=== PATIENT | female | born 1980 | race Caucasian/White ===

== ENCOUNTER → 2025-03-15 | Outpatient (CLI) | payer OTHER, SELFPAY ==
[2025-03-15 22:55] LABS: Hematocrit 38.2 % (37-47); Hemoglobin 12.4 g/dL (12.0-15.0); Immature Granulocytes Count 0.020 X10^3/uL (0.0-0.0); Mean Corp Hgb Conc 32.5 g/dL (32-36); Mean Corpuscular Volume 78.8 fL (81-99); Mean Platelet Vol. 10.9 fl (6.2-12.0); NRBC Flagged by Analyzer 0 % (0-5); Platelet Count 309 K/mm3 (150-450); RBC Distribution Width CV 15.2 % (11.6-14.6); RBC Distribution Width SD 42.6 fl (35.1-43.9); Red Blood Count 4.85 M/mm3 (4.2-5.4); White Blood Count 7.7 K/mm3 (4.4-11.0)
[2025-03-16 00:16] LABS: FOLATES,SERUM (FOLIC ACID) > 40.00 ng/mL (4.60-34.80)
[2025-03-16 04:41] LABS: BUN 19 mg/dL (4-19); BUN/Creat Ratio 24.1 RATIO (10-20); Glucose 87 mg/dL (70-99)
[2025-03-16 04:42] LABS: AST(SGOT) 24 U/L (<=31); Alanine Aminotransfer ALT/SGPT 39 U/L (<=34); Albumin, Serum 4.0 g/dL (3.5-5.0); Alkaline Phosphatase 126 U/L (35-104); Anion Gap 12 (5-15); CRP 7.28 mg/L (0.0-3.0); Calcium,Total 8.9 mg/dL (7.6-11.0); Carbon Dioxide 22.5 mmol/L (21.0-32.0); Chloride 103 mmol/L (98-108); Globulin 3.3 g/dL (2.2-4.2); Potassium 4.3 mmol/L (3.3-5.1)
[2025-03-16 04:43] LABS: Ferritin 58 ng/mL (22-378); Iron 28 ug/dL (50-170); Vitamin B12 920 pg/mL (180-914); Vitamin D,25 Hydroxy 33.2 ng/mL (30-100)
[2025-03-18 08:07] LABS: PROGESTERONE 0.1 ng/mL (.)
== END | disposition home or self-care (01) ==
PROVIDERS: PCP Family Medicine; Referring Provider Nurse Practitioner Family; Visit Provider Nurse Practitioner Family
DX: A69.20 Lyme disease, unspecified (principal); R21 Rash and other nonspecific skin eruption; R53.83 Other fatigue; R51.9 Headache, unspecified; R06.00 Dyspnea, unspecified
CPT/HCPCS: 80053; 82306; 82607; 82627; 82670; 82728; 82746; 83540; 84144; 84403; 85025; 86140; 82626

== ENCOUNTER → 2025-04-27 | Outpatient (CLI) | payer OTHER, SELFPAY ==
--- OUTSIDE RECORDS SUMMARY | 2025-04-27 17:08 | XMS RPT_ITS | CCD ---
Author Organization [facility] Care Team Providers Care Supervisor [employer] Department Name Role Phone ELENA TOMAS DO Consulting Unavailable GRISELDA WEI CNM Admitting Unavailable GRISELDA WEI CNM Primary Care Unavailable GRISELDA WEI CNM Attending Unavailable PROVIDER, UNKNOWN Consulting Unavailable YOSSI CRAIN CNM Admitting Unavailable YOSSI CRAIN CNM Primary Care Unavailable YOSSI CRAIN CNM Attending Unavailable ELENA TOMAS DO Consulting Unavailable PROVIDER, UNKNOWN Consulting Unavailable Unavailable Primary Care Provider Dr. Elena Geller DO Primary Care Provider Payton LUQUE-C, Mckenzie Gold Attending Provider Unava ilable Payton LUQUE-C, Mckenzie Gold Referring Provider Unava ilable Payton DIVERSIFIED CROPS FARMER, Mckenzie Gold Attending Elena Geller Primary Care Unavailable Payton LUQUE, Mckenzie Gold Referring Luis Cain NP, Mckenzie Gold Attending Elena Geller Primary Care Unavailable Medications Current Medications Medication Drug Class(es) Dates Sig (Normalized) Sig (Original) L.Acidoph,Paracasei ,B.Animalis 1 EACH capsule (1 source) Start: 03-29-2015 take 1 capsule by mouth once daily L.Acidoph,Paracase i,B.Animalis 1 EACH capsule Active 1 NMA PO DAILY March 29, 2015 12:00am Magnesium (1 source) Start: 03-29-2015 Magnesium capsule Active 2 PO TWICE A DAY March 29, 2015 12:00am Vit No.452-Hlob-Ixyac ( Vitamin Tablet) 1 EACH tablet (1 source) Start: 03-29-2015 Vit No.419-Ipdk-Mwboz ( Vitamin Tablet) 1 EACH tablet Active 1 NMA PO DAILY March 29, 2015 12:00am Vitamin C tablet (1 source) Start: 03-29-2015 Vitamin C tablet Active 500 {tbl} PO DAILY March 29, 2015 12:00am Problems Problem Classification Problem Date Documented Da te Episodic/Chronic Other infections; including parasitic (1 source) Lyme disease, unspecified; Translations: [Lyme disease, unspecified] Onset: 03-22-2025 Episodic Results Test Name Value Interpretation Reference Range Facility DHEA Sulfateon 03-18-2025 DHEA SULFATE 41.9 ug/dL Low 57.3-279.2 [facility] Comment on above: Order Comment: N Result Comment: Perf ormed at: [address] [id number] Oceanology Teacher: Braden Chapa PhD, Phone: [phone] Performed By: #### L 500.4050, L506.0200, L506.1001, L503.6550, L100.0100, L501.6710, L503.6150, L3300.1750, L503.0106 #### [facility] [address] [place], [address] PROGESTERONE 4317on 03-18-20 PROGESTERONE 0.1 ng/mL Normal . [facility] Comment on above: Order Comment: N Result Comment: Foll icular phase 0.1 - 0.9 Luteal phase 1.8 - 23.9 Ovulation phase 0.1 - 12.0 First trimester 11.0 - 44.3 Second trimester 25.4 - 83.3 Third trimester 58.7 - 214.0 Postmenopausal 0.0 - 0.1 Performed at: [address] [id number] Oceanology Teacher: Braden Chapa PhD, Phone: [phone] Performed By: #### L 500.4050, L506.0200, L506.1001, L503.6550, L100.0100, L501.6710, L503.6150, L3300.1750, L503.0106 #### [facility] [address] [place], [address] CRPon 03-16-2025 C-REACTIVE PROT 7.28 mg/L High 0.0-3.0 [facility] Comment on above: Performed By: #### L 500.4050, L506.0200, L506.1001, L503.6550, L100.0100, L501.6710, L503.6150, L3300.1750, L503.0106 #### [facility] [address] [place], [address] C-REACTIVE PROT 7.28 mg/L High 0.0-3.0 [facility] Comment on above: Order Comment: WRONG ACCOUNT MADE- SEE ACCOUNT [id number] Result Comment: VISHAL G ACCOUNT MADE- SEE ACCOUNT [id number] Performed By: #### L 500.4050, L506.0200, L506.1001, L503.6550, L100.0100, L501.6710, L503.6150, L3300.1750, L503.0106 #### [facility] [address] [place], [address] Comprehensive Metabolic Prof [facility] 03-16-2025 Albumin [Mass/Vol] 4.0 g/dL Normal 3.5-5.0 [facility] Comment on above: Performed By: #### L 500.4050, L506.0200, L506.1001, L503.6550, L100.0100, L501.6710, L503.6150, L3300.1750, L503.0106 #### [facility] [address] [place], [address] Albumin/Globulin [Mass ratio] 1.2 {ratio} Normal 0.9-2.4 [facility] Comment on above: Performed By: #### L 500.4050, L506.0200, L506.1001, L503.6550, L100.0100, L501.6710, L503.6150, L3300.1750, L503.0106 #### [facility] [address] [place], [address] ALK PHOS 126 U/L High 35-104 [facility] Comment on above: Performed By: #### L 500.4050, L506.0200, L506.1001, L503.6550, L100.0100, L501.6710, L503.6150, L3300.1750, L503.0106 #### [facility] [address] [place], [address] ALT [Catalytic activity/Vol] 39 U/L High <=34 [facility] Comment on above: Performed By: #### L 500.4050, L506.0200, L506.1001, L503.6550, L100.0100, L501.6710, L503.6150, L3300.1750, L503.0106 #### [facility] [address] [place], [address] AST [Catalytic activity/Vol] 24 U/L Normal <=31 [facility] Comment on above: Performed By: #### L 500.4050, L506.0200, L506.1001, L503.6550, L100.0100, L501.6710, L503.6150, L3300.1750, L503.0106 #### [facility] [address] [place], [address] Bilirubin [Mass/Vol] 0.18 mg/dL Normal 0.00-1.30 [facility] Comment on above: Performed By: #### L 500.4050, L506.0200, L506.1001, L503.6550, L100.0100, L501.6710, L503.6150, L3300.1750, L503.0106 #### [facility] [address] [place], [address] Calcium [Mass/Vol] 8.9 mg/dL Normal 7.6-11.0 [facility] Comment on above: Performed By: #### L 500.4050, L506.0200, L506.1001, L503.6550, L100.0100, L501.6710, L503.6150, L3300.1750, L503.0106 #### [facility] [address] [place], [address] Chloride [Moles/Vol] 103 mmol/L Normal 98-108 [facility] Comment on above: Performed By: #### L 500.4050, L506.0200, L506.1001, L503.6550, L100.0100, L501.6710, L503.6150, L3300.1750, L503.0106 #### [facility] [address] [place], [place], [id number] (835) CO2 [Moles/Vol] 22.5 mmol/L Normal 21.0-32.0 [facility] Comment on above: Performed By: #### L 500.4050, L506.0200, L506.1001, L503.6550, L100.0100, L501.6710, L503.6150, L3300.1750, L503.0106 #### [facility] [address] [place], [address] GAP 12 Normal 5-15 [facility] Comment on above: Performed By: #### L 500.4050, L506.0200, L506.1001, L503.6550, L100.0100, L501.6710, L503.6150, L3300.1750, L503.0106 #### [facility] [address] [place], [place], [id number] ([address]) GFR/1.73 sq M.predicted among non-blacks MDRD (S/P/Bld) [Vol rate/Area] 94 mL/min/{1.73_m2} Normal >60 [facility] Comment on above: Performed By: #### L 500.4050, L506.0200, L506.1001, L503.6550, L100.0100, L501.6710, L503.6150, L3300.1750, L503.0106 #### [facility] [address] [place], [address] Globulin (S) [Mass/Vol] 3.3 g/dL Normal 2.2-4.2 [facility] Comment on above: Performed By: #### L 500.4050, L506.0200, L506.1001, L503.6550, L100.0100, L501.6710, L503.6150, L3300.1750, L503.0106 #### [facility] [address] [place], [address] Potassium [Moles/Vol] 4.3 mmol/L Normal 3.3-5.1 [facility] Comment on above: Performed By: #### L 500.4050, L506.0200, L506.1001, L503.6550, L100.0100, L501.6710, L503.6150, L3300.1750, L503.0106 #### [facility] [address] [place], [address] Sodium [Moles/Vol] 137 mmol/L Normal 133-145 [facility] Comment on above: Performed By: #### L 500.4050, L506.0200, L506.1001, L503.6550, L100.0100, L501.6710, L503.6150, L3300.1750, L503.0106 #### [facility] [address] [place], [address] T PROT 7.3 g/dL Normal 5.9-8.4 [facility] Comment on above: Performed By: #### L 500.4050, L506.0200, L506.1001, L503.6550, L100.0100, L501.6710, L503.6150, L3300.1750, L503.0106 #### [facility] [address] [place], [address] BUN/CRE 24.1 RATIO High 10-20 [facility] Comment on above: Performed By: #### L 500.4050, L506.0200, L506.1001, L503.6550, L100.0100, L501.6710, L503.6150, L3300.1750, L503.0106 #### [facility] [address] [place], [address] Creatinine [Mass/Vol] 0.79 mg/dL Normal 0.70-1.20 [facility] Comment on above: Performed By: #### L 500.4050, L506.0200, L506.1001, L503.6550, L100.0100, L501.6710, L503.6150, L3300.1750, L503.0106 #### [facility] [address] [place], [address] Glucose [Mass/Vol] 87 mg/dL Normal 70-99 [facility] Comment on above: Performed By: #### L 500.4050, L506.0200, L506.1001, L503.6550, L100.0100, L501.6710, L503.6150, L3300.1750, L503.0106 #### [facility] [address] [place], [address] Urea nitrogen [Mass/Vol] 19 mg/dL Normal 4-19 [facility] Comment on above: Performed By: #### L 500.4050, L506.0200, L506.1001, L503.6550, L100.0100, L501.6710, L503.6150, L3300.1750, L503.0106 #### [facility] [address] [place], [address] Estradiolon 03-16-2025 ESTRADIOL 17.8 pg/mL Normal [facility] Comment on above: Result Comment: FEMA LES ADULT FEMALE: Premenopausal: 15-350 pg/mL(E2 levels vary widely through the menstrual cycle) Postmenopausal: <10 pg/mL MIGUEL STAGES MEAN AGE REFERENCE RANGES Stage I(>14 days and prepubertal) 7.1 years Undetectable-20 pg/mLL Stage II 10.5 years Undetectable-24 pg/mL Stage III 11.6 years Undetectable-60 pg/mL Stage IV 12.3 years 15-85 pg/mL Stage V 14.5 years 15-350 pg/mL Puberty onset (transition from Miguel stage I to Miguel stage II) occurs for girls at a median age of 10.5 (/- 2) years. There is evidence that it may occur up to 1 year earlier in obese girls and in girls. Progression through Miguel stages is variable. Miguel stage V (adult) should be reached by age 18. Performed By: #### L 500.4050, L506.0200, L506.1001, L503.6550, L100.0100, L501.6710, L503.6150, L3300.1750, L503.0106 #### [facility] [address] [place], [address] Ferritinon 03-16-2025 Ferritin [Mass/Vol] 58 ng/mL Normal 22-378 [facility] Comment on above: Performed By: #### L 500.4050, L506.0200, L506.1001, L503.6550, L100.0100, L501.6710, L503.6150, L3300.1750, L503.0106 #### [facility] [address] [place], [place], [address] Folates,Serum (Folic Acid)on 03-16-2025 FOLATES,SERUM > 40.00 High 4.60-34.80 [facility] Comment on above: Order Comment: WRONG ACCOUNT MADE- SEE ACCOUNT [id number] N Result Comment: VISHAL Cali ACCOUNT MADE- SEE ACCOUNT [id number] Performed By: #### L 500.4050, L506.0200, L506.1001, L503.6550, L100.0100, L501.6710, L503.6150, L3300.1750, L503.0106 #### [facility] [address] [place], [address] FOLATES,SERUM > 40.00 High 4.60-34.80 [facility] Comment on above: Order Comment: N Performed By: #### L 500.4050, L506.0200, L506.1001, L503.6550, L100.0100, L501.6710, L503.6150, L3300.1750, L503.0106 #### [facility] [address] [place], [address] Ironon 03-16-2025 Iron [Mass/Vol] 28 ug/dL Low 50-170 [facility] Comment on above: Performed By: #### L 500.4050, L506.0200, L506.1001, L503.6550, L100.0100, L501.6710, L503.6150, L3300.1750, L503.0106 #### [facility] [address] [place], [address] Iron [Mass/Vol] 28 ug/dL Low 50-170 [facility] Comment on above: Order Comment: WRONG ACCOUNT MADE- SEE ACCOUNT [id number] Result Comment: VISHAL Cali ACCOUNT MADE- SEE ACCOUNT [id number] Performed By: #### L 500.4050, L506.0200, L506.1001, L503.6550, L100.0100, L501.6710, L503.6150, L3300.1750, L503.0106 #### [facility] [address] [place], [address] L509.3001on 03-16-2025 Testosterone [Mass/Vol] ng/dL Low 9-55 [facility] Comment on above: Performed By: #### L 509.3001 #### [facility] [address] [place], [address] Laboratory - Chemistry and C hemistry - challengeOrdered By: Mckenzie Cain on 03-16-2025 Testosterone [Mass/Vol] ng/dL Low 9-55 [facility] Vitamin B12on 03-16-2025 Cobalamin (Vitamin B12) [Mass/Vol] 920 pg/mL High 180-914 [facility] Comment on above: Performed By: #### L 500.4050, L506.0200, L506.1001, L503.6550, L100.0100, L501.6710, L503.6150, L3300.1750, L503.0106 #### [facility] [address] [place], [address] Vitamin D,25 Hydroxyon 03-16 Vitamin D 25-OH 33.2 ng/mL Normal 30-100 [facility] Comment on above: Performed By: #### L 500.4050, L506.0200, L506.1001, L503.6550, L100.0100, L501.6710, L503.6150, L3300.1750, L503.0106 #### [facility] [address] [place], [address] Absolute lymphocyte countOrd ered By: Mckenzie Cain on 03-15-2025 Lymphocytes Auto (Unsp spec) [#/Vol] 1.37 10*3/uL 0.83-4.51 [facility] Absolute neutrophil countOrd ered By: Mckenzie Cain on 03-15-2025 Neutrophils (Bld) [#/Vol] 5.1 10*3/uL 2.0-7.7 [facility] Anion gap in Serum or Plasma Ordered By: Mckenzie Cain on 03-15-2025 Anion gap [Moles/Vol] 12 mmol/L 5-15 [facility] Automated lymphocyte count a s percentage of total leukocytesOrdered By: Mckenzie Cain on 03-15-2025 Lymphocytes/100 WBC Auto (Unsp spec) 17.7 % Low 19-41 [facility] BUN/creatinine ratioOrdered By: Mckenzie Cain on 03-15-2025 Urea nitrogen/Creatinine [Mass ratio] 24.1 mg/mg High 10-20 [facility] Basophil percentageOrdered B y: Mckenzie Cain on 03-15-2025 Basophils/100 WBC (Bld) 0.8 % 0-1 [facility] Bilirubin, totalOrdered By: Mckenzie Cain on 03-15-2025 Bilirubin [Mass/Vol] 0.18 mg/dL 0.00-1.30 [facility] CBC W/Diff, Automatedon 07-0 -2024 Absolute Lymph 1.37 X10 3/uL Normal 0.83-4.51 [facility] Comment on above: Performed By: #### L 500.4050, L506.0200, L506.1001, L503.6550, L100.0100, L501.6710, L503.6150, L3300.1750, L503.0106 #### [facility] [address] [place], [address] Absolute Neut 5.1 X10 3/uL Normal 2.0-7.7 [facility] Comment on above: Performed By: #### L 500.4050, L506.0200, L506.1001, L503.6550, L100.0100, L501.6710, L503.6150, L3300.1750, L503.0106 #### [facility] [address] [place], [address] Basophils/100 WBC (Bld) 0.8 % Normal 0-1 [facility] Comment on above: Performed By: #### L 500.4050, L506.0200, L506.1001, L503.6550, L100.0100, L501.6710, L503.6150, L3300.1750, L503.0106 #### [facility] [address] [place], [address] Eosinophils/100 WBC (Bld) 8.0 % High 0-5 [facility] Comment on above: Performed By: #### L 500.4050, L506.0200, L506.1001, L503.6550, L100.0100, L501.6710, L503.6150, L3300.1750, L503.0106 #### [facility] [address] [place], [address] Erythrocyte distribution width (RBC) [Ratio] 15.2 % High 11.6-14.6 [facility] Comment on above: Performed By: #### L 500.4050, L506.0200, L506.1001, L503.6550, L100.0100, L501.6710, L503.6150, L3300.1750, L503.0106 #### [facility] [address] [place], [place], [id number] (824) Hematocrit (Bld) [Volume fraction] 38.2 % Normal 37-47 [facility] Comment on above: Performed By: #### L 500.4050, L506.0200, L506.1001, L503.6550, L100.0100, L501.6710, L503.6150, L3300.1750, L503.0106 #### [facility] [address] [place], [address] Hemoglobin (Bld) [Mass/Vol] 12.4 g/dL Normal 12.0-15.0 [facility] Comment on above: Performed By: #### L 500.4050, L506.0200, L506.1001, L503.6550, L100.0100, L501.6710, L503.6150, L3300.1750, L503.0106 #### [facility] [address] [place], [address] IG% 0.300 Normal 0.0-0.9 [facility] Comment on above: Result Comment: IG% - Immature Granulocytes (promyelocytes, myelocytes and metamyelocytes) > 1% indicates that a LEFT SHIFT is Present. Performed By: #### L 500.4050, L506.0200, L506.1001, L503.6550, L100.0100, L501.6710, L503.6150, L3300.1750, L503.0106 #### [facility] [address] [place], [address] Lymphocytes/100 WBC (Bld) 17.7 % Low 19-41 [facility] Comment on above: Performed By: #### L 500.4050, L506.0200, L506.1001, L503.6550, L100.0100, L501.6710, L503.6150, L3300.1750, L503.0106 #### [facility] [address] [place], [address] MCH (RBC) [Entitic mass] 25.6 pg Low 27.0-32.0 [facility] Comment on above: Performed By: #### L 500.4050, L506.0200, L506.1001, L503.6550, L100.0100, L501.6710, L503.6150, L3300.1750, L503.0106 #### [facility] [address] [place], [address] MCHC (RBC) [Mass/Vol] 32.5 g/dL Normal 32-36 [facility] Comment on above: Performed By: #### L 500.4050, L506.0200, L506.1001, L503.6550, L100.0100, L501.6710, L503.6150, L3300.1750, L503.0106 #### [facility] [address] [place], [address] MCV (RBC) [Entitic vol] 78.8 fL Low 81-99 [facility] Comment on above: Performed By: #### L 500.4050, L506.0200, L506.1001, L503.6550, L100.0100, L501.6710, L503.6150, L3300.1750, L503.0106 #### [facility] [address] [place], [address] Monocytes/100 WBC (Bld) 7.1 % Normal 0-10 [facility] Comment on above: Performed By: #### L 500.4050, L506.0200, L506.1001, L503.6550, L100.0100, L501.6710, L503.6150, L3300.1750, L503.0106 #### [facility] [address], [address] Neutrophils/100 WBC (Bld) 66.1 % Normal 47-70 [facility] Comment on above: Performed By: #### L 500.4050, L506.0200, L506.1001, L503.6550, L100.0100, L501.6710, L503.6150, L3300.1750, L503.0106 #### [facility] [address], [address] Nucleated RBC (Bld) [#/Vol] 0 10*3/uL Normal 0-5 [facility] Comment on above: Performed By: #### L 500.4050, L506.0200, L506.1001, L503.6550, L100.0100, L501.6710, L503.6150, L3300.1750, L503.0106 #### [facility] [address] [place], [address] Platelet mean volume (Bld) [Entitic vol] 10.9 fL Normal 6.2-12.0 [facility] Comment on above: Performed By: #### L 500.4050, L506.0200, L506.1001, L503.6550, L100.0100, L501.6710, L503.6150, L3300.1750, L503.0106 #### [facility] [address] [place], [address] Platelets (Bld) [#/Vol] 309 10*3/uL Normal 150-450 [facility] Comment on above: Performed By: #### L 500.4050, L506.0200, L506.1001, L503.6550, L100.0100, L501.6710, L503.6150, L3300.1750, L503.0106 #### [facility] [address] [place], [address] RBC (Bld) [#/Vol] 4.85 10*6/uL Normal 4.2-5.4 [facility] Comment on above: Performed By: #### L 500.4050, L506.0200, L506.1001, L503.6550, L100.0100, L501.6710, L503.6150, L3300.1750, L503.0106 #### [facility] [address] [place], [address] RDW SD 42.6 fl Normal 35.1-43.9 [facility] Comment on above: Performed By: #### L 500.4050, L506.0200, L506.1001, L503.6550, L100.0100, L501.6710, L503.6150, L3300.1750, L503.0106 #### [facility] [address] [place], [address] WBC (Bld) [#/Vol] 7.7 10*3/uL Normal 4.4-11.0 [facility] Comment on above: Performed By: #### L 500.4050, L506.0200, L506.1001, L503.6550, L100.0100, L501.6710, L503.6150, L3300.1750, L503.0106 #### [facility] [address] [place], [address] Absolute Lymph 1.43 X10 3/uL Normal 0.83-4.51 [facility] Comment on above: Result Comment: VISHAL Cali ACCOUNT MADE- SEE ACCOUNT [id number] Performed By: #### L 500.4050, L506.0200, L506.1001, L503.6550, L100.0100, L501.6710, L503.6150, L3300.1750, L503.0106 #### [facility] [address] [place], [address] Absolute Neut 5.3 X10 3/uL Normal 2.0-7.7 [facility] Comment on above: Result Comment: VISHAL Cali ACCOUNT MADE- SEE ACCOUNT [id number] Performed By: #### L 500.4050, L506.0200, L506.1001, L503.6550, L100.0100, L501.6710, L503.6150, L3300.1750, L503.0106 #### [facility] [address] [place], [address] BASO# 0.06 X10 3/uL Normal [facility] Comment on above: Result Comment: VISHAL Cali ACCOUNT MADE- SEE ACCOUNT [id number] Performed By: #### L 500.4050, L506.0200, L506.1001, L503.6550, L100.0100, L501.6710, L503.6150, L3300.1750, L503.0106 #### [facility] [address] [place], [address] Basophils/100 WBC (Bld) 0.8 % Normal 0-1 [facility] Comment on above: Result Comment: VISHAL Cali ACCOUNT MADE- SEE ACCOUNT [id number] Performed By: #### L 500.4050, L506.0200, L506.1001, L503.6550, L100.0100, L501.6710, L503.6150, L3300.1750, L503.0106 #### [facility] [address] [place], [address] EOS# 0.59 X10 3/uL Normal [facility] Comment on above: Result Comment: VISHAL Cali ACCOUNT MADE- SEE ACCOUNT [id number] Performed By: #### L 500.4050, L506.0200, L506.1001, L503.6550, L100.0100, L501.6710, L503.6150, L3300.1750, L503.0106 #### [facility] [address] [place], [address] Eosinophils/100 WBC (Bld) 7.4 % High 0-5 [facility] Comment on above: Result Comment: VISHAL Cali ACCOUNT MADE- SEE ACCOUNT [id number] Performed By: #### L 500.4050, L506.0200, L506.1001, L503.6550, L100.0100, L501.6710, L503.6150, L3300.1750, L503.0106 #### [facility] [address] [place], [address] Erythrocyte distribution width (RBC) [Ratio] 15.0 % High 11.6-14.6 [facility] Comment on above: Result Comment: VISHAL Cali ACCOUNT MADE- SEE ACCOUNT [id number] Performed By: #### L 500.4050, L506.0200, L506.1001, L503.6550, L100.0100, L501.6710, L503.6150, L3300.1750, L503.0106 #### [facility] [address] [place], [address] Hematocrit (Bld) [Volume fraction] 38.2 % Normal 37-47 [facility] Comment on above: Result Comment: VISHAL Cali ACCOUNT MADE- SEE ACCOUNT [id number] Performed By: #### L 500.4050, L506.0200, L506.1001, L503.6550, L100.0100, L501.6710, L503.6150, L3300.1750, L503.0106 #### [facility] [address] [place], [place], [id number] ([phone]) Hemoglobin (Bld) [Mass/Vol] 12.3 g/dL Normal 12.0-15.0 [facility] Comment on above: Result Comment: VISHAL Viraj ACCOUNT MADE- SEE ACCOUNT [id number] Performed By: #### L 500.4050, L506.0200, L506.1001, L503.6550, L100.0100, L501.6710, L503.6150, L3300.1750, L503.0106 #### [facility] [address]. [place], [place], [id number] IG# 0.030 X10 3/uL High 0.0-0.0 [facility] Comment on above: Result Comment: VISHAL Cali ACCOUNT MADE- SEE ACCOUNT [id number] Performed By: #### L 500.4050, L506.0200, L506.1001, L503.6550, L100.0100, L501.6710, L503.6150, L3300.1750, L503.0106 #### [facility] [address] [facility] [place], [place], [id number] IG% 0.400 Normal 0.0-0.9 [facility] Comment on above: Result Comment: VISHAL [employer] ACCOUNT MADE- SEE ACCOUNT [id number] IG% - Immature Granulocytes (promyelocytes, myelocytes and metamyelocytes) > 1% indicates that a LEFT SHIFT is Present. Performed By: #### L 500.4050, L506.0200, L506.1001, L503.6550, L100.0100, L501.6710, L503.6150, L3300.1750, L503.0106 #### [facility] [address] [place], [place], [id number] ([phone]) LYMPH# 1.43 X10 3/ul Normal 0.83-4.51 [facility] Comment on above: Result Comment: VISHAL Cali ACCOUNT MADE- SEE ACCOUNT [id number] Performed By: #### L 500.4050, L506.0200, L506.1001, L503.6550, L100.0100, L501.6710, L503.6150, L3300.1750, L503.0106 #### [facility] [address] [place], [address] Lymphocytes/100 WBC (Bld) 18.0 % Low 19-41 [facility] Comment on above: Result Comment: VISHAL Cali ACCOUNT MADE- SEE ACCOUNT [id number] Performed By: #### L 500.4050, L506.0200, L506.1001, L503.6550, L100.0100, L501.6710, L503.6150, L3300.1750, L503.0106 #### [facility] [address] [place], [address] MCH (RBC) [Entitic mass] 25.5 pg Low 27.0-32.0 [facility] Comment on above: Result Comment: VISHAL Cali ACCOUNT MADE- SEE ACCOUNT [id number] Performed By: #### L 500.4050, L506.0200, L506.1001, L503.6550, L100.0100, L501.6710, L503.6150, L3300.1750, L503.0106 #### [facility] [address] [place], [address] MCHC (RBC) [Mass/Vol] 32.2 g/dL Normal 32-36 [facility] Comment on above: Result Comment: VISHAL Cali ACCOUNT MADE- SEE ACCOUNT [id number] Performed By: #### L 500.4050, L506.0200, L506.1001, L503.6550, L100.0100, L501.6710, L503.6150, L3300.1750, L503.0106 #### [facility] [address] [place], [address] MCV (RBC) [Entitic vol] 79.1 fL Low 81-99 [facility] Comment on above: Result Comment: VISHAL Cali ACCOUNT MADE- SEE ACCOUNT [id number] Performed By: #### L 500.4050, L506.0200, L506.1001, L503.6550, L100.0100, L501.6710, L503.6150, L3300.1750, L503.0106 #### [facility] [address] [place], [address] MONO # 0.53 X10 3/uL Normal [facility] Comment on above: Result Comment: VISHAL Cali ACCOUNT MADE- SEE ACCOUNT [id number] Performed By: #### L 500.4050, L506.0200, L506.1001, L503.6550, L100.0100, L501.6710, L503.6150, L3300.1750, L503.0106 #### [facility] [address] [place], [address] Monocytes/100 WBC (Bld) 6.7 % Normal 0-10 [facility] Comment on above: Result Comment: VISHAL Cali ACCOUNT MADE- SEE ACCOUNT [id number] Performed By: #### L 500.4050, L506.0200, L506.1001, L503.6550, L100.0100, L501.6710, L503.6150, L3300.1750, L503.0106 #### [facility] [address] [place], [address] Neutrophil # 5.29 X10 3/uL Normal 2.7-7.7 [facility] Comment on above: Result Comment: VISHAL Cali ACCOUNT MADE- SEE ACCOUNT [id number] Performed By: #### L 500.4050, L506.0200, L506.1001, L503.6550, L100.0100, L501.6710, L503.6150, L3300.1750, L503.0106 #### [facility] [address] [place], [address] Neutrophils/100 WBC (Bld) 66.7 % Normal 47-70 [facility] Comment on above: Result Comment: VISHAL Cali ACCOUNT MADE- SEE ACCOUNT [id number] Performed By: #### L 500.4050, L506.0200, L506.1001, L503.6550, L100.0100, L501.6710, L503.6150, L3300.1750, L503.0106 #### [facility] [address] [place], [address] Nucleated RBC (Bld) [#/Vol] 0 10*3/uL Normal 0-5 [facility] Comment on above: Result Comment: VISHAL Cali ACCOUNT MADE- SEE ACCOUNT [id number] Performed By: #### L 500.4050, L506.0200, L506.1001, L503.6550, L100.0100, L501.6710, L503.6150, L3300.1750, L503.0106 #### [facility] [address] [place], [address] Platelet mean volume (Bld) [Entitic vol] 10.4 fL Normal 6.2-12.0 [facility] Comment on above: Result Comment: VISHAL Cali ACCOUNT MADE- SEE ACCOUNT [id number] Performed By: #### L 500.4050, L506.0200, L506.1001, L503.6550, L100.0100, L501.6710, L503.6150, L3300.1750, L503.0106 #### [facility] [address] [place], [address] Platelets (Bld) [#/Vol] 300 10*3/uL Normal 150-450 [facility] Comment on above: Result Comment: VISHAL Cali ACCOUNT MADE- SEE ACCOUNT [id number] Performed By: #### L 500.4050, L506.0200, L506.1001, L503.6550, L100.0100, L501.6710, L503.6150, L3300.1750, L503.0106 #### [facility] [address] [place], [address] RBC (Bld) [#/Vol] 4.83 10*6/uL Normal 4.2-5.4 [facility] Comment on above: Result Comment: VISHAL Cali ACCOUNT MADE- SEE ACCOUNT [id number] Performed By: #### L 500.4050, L506.0200, L506.1001, L503.6550, L100.0100, L501.6710, L503.6150, L3300.1750, L503.0106 #### [facility] [address] [place], [address] RDW SD 42.9 fl Normal 35.1-43.9 [facility] Comment on above: Result Comment: VISHAL Cali ACCOUNT MADE- SEE ACCOUNT [id number] Performed By: #### L 500.4050, L506.0200, L506.1001, L503.6550, L100.0100, L501.6710, L503.6150, L3300.1750, L503.0106 #### [facility] [address] [place], [address] WBC (Bld) [#/Vol] 7.9 10*3/uL Normal 4.4-11.0 [facility] Comment on above: Result Comment: VISHAL Cali ACCOUNT MADE- SEE ACCOUNT [id number] Performed By: #### L 500.4050, L506.0200, L506.1001, L503.6550, L100.0100, L501.6710, L503.6150, L3300.1750, L503.0106 #### [facility] [address] [place], [address] Carbon dioxide, total [Moles /volume] in Central venous bloodOrdered By: Mckenzie Cain on 03-15-2025 CO2 [Moles/Vol] 22.5 mmol/L 21.0-32.0 [facility] Chloride assayOrdered By: Ady Cain on 03-15-2025 Chloride [Moles/Vol] 103 mmol/L 98-108 [facility] Comprehensive Metabolic Prof ilon 03-15-2025 A/G Normal 0.9-2.4 [facility] Comment on above: Performed By: #### L 500.4050, L506.0200, L506.1001, L503.6550, L100.0100, L501.6710, L503.6150, L3300.1750, L503.0106 #### [facility] [address] [place], [address] ALB Normal 3.5-5.0 [facility] Comment on above: Performed By: #### L 500.4050, L506.0200, L506.1001, L503.6550, L100.0100, L501.6710, L503.6150, L3300.1750, L503.0106 #### [facility] [address] [place], [address] ALK PHOS Normal 35-104 [facility] Comment on above: Performed By: #### L 500.4050, L506.0200, L506.1001, L503.6550, L100.0100, L501.6710, L503.6150, L3300.1750, L503.0106 #### [facility] [address] [place], [address] ALT Normal <=34 [facility] Comment on above: Performed By: #### L 500.4050, L506.0200, L506.1001, L503.6550, L100.0100, L501.6710, L503.6150, L3300.1750, L503.0106 #### [facility] [address] [place], [address] AST Normal <=31 [facility] Comment on above: Performed By: #### L 500.4050, L506.0200, L506.1001, L503.6550, L100.0100, L501.6710, L503.6150, L3300.1750, L503.0106 #### [facility] [address] [place], [address] BUN Normal 4-19 [facility] Comment on above: Performed By: #### L 500.4050, L506.0200, L506.1001, L503.6550, L100.0100, L501.6710, L503.6150, L3300.1750, L503.0106 #### [facility] [address] [place], [address] BUN/CRE Normal 10-20 [facility] Comment on above: Performed By: #### L 500.4050, L506.0200, L506.1001, L503.6550, L100.0100, L501.6710, L503.6150, L3300.1750, L503.0106 #### [facility] [address] [place], [address] Calcium Normal 7.6-11.0 [facility] Comment on above: Performed By: #### L 500.4050, L506.0200, L506.1001, L503.6550, L100.0100, L501.6710, L503.6150, L3300.1750, L503.0106 #### [facility] [address] [place], [address] CL Normal 98-108 [facility] Comment on above: Performed By: #### L 500.4050, L506.0200, L506.1001, L503.6550, L100.0100, L501.6710, L503.6150, L3300.1750, L503.0106 #### [facility] [address] [place], [address] CO2 Normal 21.0-32.0 [facility] Comment on above: Performed By: #### L 500.4050, L506.0200, L506.1001, L503.6550, L100.0100, L501.6710, L503.6150, L3300.1750, L503.0106 #### [facility] [address] [place], [address] CREAT,SERUM Normal 0.70-1.20 [facility] Comment on above: Performed By: #### L 500.4050, L506.0200, L506.1001, L503.6550, L100.0100, L501.6710, L503.6150, L3300.1750, L503.0106 #### [facility] [address] [place], [address] eGFR Normal >60 [facility] Comment on above: Result Comment: mL/m in/1.73m2 CKD-EPI Creatinine Equation (2020) Performed By: #### L 500.4050, L506.0200, L506.1001, L503.6550, L100.0100, L501.6710, L503.6150, L3300.1750, L503.0106 #### [facility] [address] [place], [address] GAP Normal 5-15 [facility] Comment on above: Performed By: #### L 500.4050, L506.0200, L506.1001, L503.6550, L100.0100, L501.6710, L503.6150, L3300.1750, L503.0106 #### [facility] [address] [place], [address] GLOB Normal 2.2-4.2 [facility] Comment on above: Performed By: #### L 500.4050, L506.0200, L506.1001, L503.6550, L100.0100, L501.6710, L503.6150, L3300.1750, L503.0106 #### [facility] [address] [place], [address] GLU Normal 70-99 [facility] Comment on above: Performed By: #### L 500.4050, L506.0200, L506.1001, L503.6550, L100.0100, L501.6710, L503.6150, L3300.1750, L503.0106 #### [facility] [address] [place], [address] Potassium Normal 3.3-5.1 [facility] Comment on above: Performed By: #### L 500.4050, L506.0200, L506.1001, L503.6550, L100.0100, L501.6710, L503.6150, L3300.1750, L503.0106 #### [facility] [address] [place], [address] T BILI Normal 0.00-1.30 [facility] Comment on above: Performed By: #### L 500.4050, L506.0200, L506.1001, L503.6550, L100.0100, L501.6710, L503.6150, L3300.1750, L503.0106 #### [facility] [address] [place], [address] T PROT Normal 5.9-8.4 [facility] Comment on above: Performed By: #### L 500.4050, L506.0200, L506.1001, L503.6550, L100.0100, L501.6710, L503.6150, L3300.1750, L503.0106 #### [facility] [address] [place], [address] Comprehensive Metabolic Profil Normal 133-145 [facility] Comment on above: Performed By: #### L 500.4050, L506.0200, L506.1001, L503.6550, L100.0100, L501.6710, L503.6150, L3300.1750, L503.0106 #### [facility] [address] [place], [address] Eosinophil percentageOrdered By: Mckenzie Cain on 03-15-2025 Eosinophils/100 WBC (Bld) 8.0 % High 0-5 [facility] Erythrocyte distribution wid th ratioOrdered By: Mckenzie Cain on 03-15-2025 Erythrocyte distribution width (RBC) [Ratio] 15.2 % High 11.6-14.6 [facility] Erythrocyte distribution wid th standard deviationOrdered By: Mckenzie Cain on 03-15-2025 Erythrocyte distribution width (RBC) [Ratio] 42.6 fl 35.1-43.9 [facility] Estradiolon 03-15-2025 ESTRADIOL 17.8 pg/mL Normal [facility] Comment on above: Result Comment: FEMA LES ADULT FEMALE: Premenopausal: 15-350 pg/mL(E2 levels vary widely through the menstrual cycle) Postmenopausal: <10 pg/mL MIGUEL STAGES MEAN AGE REFERENCE RANGES Stage I(>14 days and prepubertal) 7.1 years Undetectable-20 pg/mLL Stage II 10.5 years Undetectable-24 pg/mL Stage III 11.6 years Undetectable-60 pg/mL Stage IV 12.3 years 15-85 pg/mL Stage V 14.5 years 15-350 pg/mL Puberty onset (transition from Miguel stage I to Miguel stage II) occurs for girls at a median age of 10.5 (/- 2) years. There is evidence that it may occur up to 1 year earlier in obese girls and in girls. Progression through Miguel stages is variable. Miguel stage V (adult) should be reached by age 18. Performed By: #### L 500.4050, L506.0200, L506.1001, L503.6550, L100.0100, L501.6710, L503.6150, L3300.1750, L503.0106 #### [facility] [address] [place], [address] Ferritinon 03-15-2025 Ferritin [Mass/Vol] 58 ng/mL Normal 22-378 [facility] Comment on above: Performed By: #### L 500.4050, L506.0200, L506.1001, L503.6550, L100.0100, L501.6710, L503.6150, L3300.1750, L503.0106 #### [facility] [address], [address] Folate [Moles/volume] in Ser um or PlasmaOrdered By: Mckenzie Cain on 03-15-2025 Folate [Moles/Vol] > 40.00 ng/mL High 4.60-34.80 [facility] Glomerular filtration rate ( GFR) estimation/1.73 sq m using serum, plasma, or whole bOrdered By: Mckenzie Cain on 03-15-2025 GFR/1.73 sq M.predicted among non-blacks MDRD (S/P/Bld) [Vol rate/Area] 94 mL/min/{1.73_m2} >60 [facility] Hematocrit Auto (Bld) [Volum e fraction]Ordered By: Mckenzie Cain on 03-15-2025 Hematocrit (Bld) [Volume fraction] 38.2 % 37-47 [facility] Hemoglobin measurementOrdere d By: Mckenzie Cain on 03-15-2025 Hemoglobin (Bld) [Mass/Vol] 12.4 g/dL 12.0-15.0 [facility] Immature granulocytes/100 WB C Auto (Bld)Ordered By: Mckenzie Cain on 03-15-2025 Immature granulocytes/100 WBC (Bld) 0.300 % 0.0-0.9 [facility] Comment on above: IG% - Immature Granu locytes (promyelocytes, myelocytes and metamyelocytes) > 1% indicates that a LEFT SHIFT is Present. Iron measurement (mass/mass) Ordered By: Mckenzie Cain on 03-15-2025 Iron (Unsp spec) [Mass/Mass] 28 ug/dL Low 50-170 [facility] - Chemistry and C hemistry - challengeOrdered By: Mckenzie Cain on 03-15-2025 AST [Catalytic activity/Vol] 24 U/L <32 [facility] MCV (mean corpuscular volume ) determinationOrdered By: Mckenzie Cain on 03-15-2025 MCV (RBC) [Entitic vol] 78.8 fL Low 81-99 [facility] Mean corpuscular hemoglobin (MCH) determinationOrdered By: Mckenzie Cain on 03-15-2025 MCH (RBC) [Entitic mass] 25.6 pg Low 27.0-32.0 [facility] Mean corpuscular hemoglobin concentration (MCHC) determinationOrdered By: Mckenzie Cain on 03-15-2025 MCHC (RBC) [Mass/Vol] 32.5 g/dL 32-36 [facility] Mean platelet volume determi nationOrdered By: Mckenzie Cain on 03-15-2025 Platelet mean volume (Bld) [Entitic vol] 10.9 fL 6.2-12.0 [facility] Monocyte percentageOrdered B y: Mckenzie Cain on 03-15-2025 Monocytes/100 WBC (Bld) 7.1 % 0-10 [facility] Neutrophil percentageOrdered By: Mckenzie Cain on 03-15-2025 Neutrophils/100 WBC (Bld) 66.1 % 47-70 [facility] Nucleated red blood cell per centageOrdered By: Mckenzie Cain on 03-15-2025 Nucleated RBC/100 WBC (Bld) [Ratio] 0 % 0-5 [facility] Platelet countOrdered By: Ady Cain on 03-15-2025 Platelets (Bld) [#/Vol] 309 10*3/uL 150-450 [facility] Potassium measurement (mass/ volume)Ordered By: Mckenzie Cain on 03-15-2025 Potassium (Unsp spec) [Mass/Vol] 4.3 mmol/L 3.3-5.1 [facility] RBC Auto (Bld) [#/Vol]Ordere d By: Mckenzie Cain on 03-15-2025 RBC (Bld) [#/Vol] 4.85 10*6/uL 4.2-5.4 [facility] Serum creatinine measurement (mass/volume)Ordered By: Mckenzie Cain on 03-15-2025 Creatinine [Mass/Vol] 0.79 mg/dL 0.70-1.20 [facility] Serum globulin measurementOr dered By: Mckenzie Cain on 03-15-2025 Globulin (S) [Mass/Vol] 3.3 g/dL 2.2-4.2 [facility] Serum glucose measurement (m ass/volume)Ordered By: Mckenzie Cain on 03-15-2025 Glucose [Mass/Vol] 87 mg/dL 70-99 [facility] Serum or plasma C reactive p rotein measurement (mass/volume)Ordered By: Mckenzie Cain on 03-15-2025 CRP [Mass/Vol] 7.28 mg/L High 0.0-3.0 [facility] Serum or plasma alanine mccall otransferase (ALT) measurementOrdered By: Mckenzie Cain on 03-15-2025 ALT [Catalytic activity/Vol] 39 U/L High <35 [facility] Serum or plasma albumin christopher urement (mass/volume)Ordered By: Mckenzie Cain on 03-15-2025 Albumin [Mass/Vol] 4.0 g/dL 3.5-5.0 [facility] Serum or plasma albumin/glob ulin mass ratioOrdered By: Mckenzie Cain on 03-15-2025 Albumin/Globulin [Mass ratio] 1.2 {ratio} 0.9-2.4 [facility] Serum or plasma alkaline leatha sphatase measurementOrdered By: Mckenzie Cain on 03-15-2025 ALP [Catalytic activity/Vol] 126 U/L High 35-104 [facility] Serum or plasma calcium christopher urement (mass/volume)Ordered By: Mckenzie Cain on 03-15-2025 Calcium [Mass/Vol] 8.9 mg/dL 7.6-11.0 [facility] Serum or plasma estradiol me asurement after follitropin dose (mass/volume)Ordered By: Mckenzie Cain on 03-15-2025 E2 post dose follitropin [Mass/Vol] 17.8 pg/mL [facility] Comment on above: FEMALES ADULT FEMALE : Premenopausal: 15-350 pg/mL(E2 levels vary widely through the menstrual cycle) Postmenopausal: <10 pg/mL MIGUEL STAGES MEAN AGE REFERENCE RANGES Stage I(>14 days and prepubertal) 7.1 years Undetectable-20 pg/mLL Stage II 10.5 years Undetectable-24 pg/mL Stage III 11.6 years Undetectable-60 pg/mL Stage IV 12.3 years 15-85 pg/mL Stage V 14.5 years 15-350 pg/mL Puberty onset (transition from Miguel stage I to Miguel stage II) occurs for girls at a median age of 10.5 (/- 2) years. There is evidence that it may occur up to 1 year earlier in obese girls and in girls.Progression through Miguel stages is variable. Miguel stage V (adult) should be reached by age 18. Serum or plasma ferritin lui surement (mass/volume)Ordered By: Mckenzie Cain on 03-15-2025 Ferritin [Mass/Vol] 58 ng/mL 22-378 [facility] Serum or plasma urea nitroge n measurement (mass/volume)Ordered By: Mckenzie Cain on 03-15-2025 Urea nitrogen [Mass/Vol] 19 mg/dL 4-19 [facility] Sodium levelOrdered By: Travis Cain on 03-15-2025 Sodium [Moles/Vol] 137 mmol/L 133-145 [facility] Total proteinOrdered By: Seth Cain on 03-15-2025 Protein [Mass/Vol] 7.3 g/dL 5.9-8.4 [facility] Vitamin B12on 03-15-2025 Cobalamin (Vitamin B12) [Mass/Vol] 920 pg/mL High 180-914 [facility] Comment on above: Performed By: #### L 500.4050, L506.0200, L506.1001, L503.6550, L100.0100, L501.6710, L503.6150, L3300.1750, L503.0106 #### [facility] [address], [place], [id number] Vitamin B12 ser/plasOrdered By: Mckenzie Cain on 03-15-2025 Cobalamin (Vitamin B12) [Mass/Vol] 920 pg/mL High 180-914 [facility] Vitamin D,25 Hydroxyon 03-15 Vitamin D 25-OH 33.2 ng/mL Normal 30-100 [facility] Comment on above: Result Comment: Chrissy min D Status Deficiency: <20 ng/mL (50nmol/L) Insufficiency: 20-30 ng/mL (50-75 nmol/L) Sufficiency: 30-100 ng/mL (75-250 nmol/L) Toxicity: >100 ng/mL (>250 nmol/L) Performed By: #### L 500.4050, L506.0200, L506.1001, L503.6550, L100.0100, L501.6710, L503.6150, L3300.1750, L503.0106 #### [facility] [address], [place], [id number] White blood cell (WBC) count Ordered By: Mckenzie Cain on 03-15-2025 WBC (Bld) [#/Vol] 7.7 10*3/uL 4.4-11.0 [facility] CBC + DIFFon 11-01-2024 Baso # 0.03 x10EE3/UL Normal 0.00 - 0.10 [facility] Comment on above: Performed By: #### 2 [id number] #### [facility],[address] [place] [address] Basophils/100 WBC (Bld) 0.2 % Normal 0.0 - 2.0 [facility] Comment on above: Performed By: #### 2 [id number] #### [facility],[address] [place] [address] CBC + DIFF Normal [facility] Comment on above: Result Comment: CBC- COMPLETE BLOOD COUNT Performed By: #### 2 [id number] #### [facility],[address] [place] [address] EO # 0.14 x10EE3/UL Normal 0.00 - 0.50 [facility] Comment on above: Performed By: #### 2 [id number] #### [facility],[address] [place] [address] Eosinophils/100 WBC (Bld) 1.0 % Normal 0.0 - 7.0 [facility] Comment on above: Performed By: #### 2 [id number] #### [facility],[address] [place] [address] Erythrocyte distribution width (RBC) [Ratio] 14.0 % Normal 12.0 - 15.[address] [facility] Comment on above: Performed By: #### 2 [id number] #### [facility],[address] [place] [address] Hematocrit (Bld) [Volume fraction] 25.3 % Low 34.0 - 46.0 [facility] Comment on above: Performed By: #### 2 [id number] #### [facility],[address] [place] [address] Hemoglobin (Bld) [Mass/Vol] 8.5 g/dL Low 12.0 - 16.0 [facility] Comment on above: Performed By: #### 2 [id number] #### [facility],[address] [place] [address] Lymph # 1.43 x10EE3/UL Normal 0.80 - 2.80 [facility] Comment on above: Performed By: #### 2 [id number] #### [facility] [place] [address] 76964 Lymphocytes/100 WBC (Bld) 10.5 % Low 20.0 - 45. 0 [facility] Comment on above: Performed By: #### 2 [id number] #### [facility],[address] [place] [address] 54202 MANUAL DIFF N/A Normal [facility] Comment on above: Performed By: #### 2 48700 #### [facility],[address] [place] [address] MCH (RBC) [Entitic mass] 30 pg Normal 27 - 33 [facility] Comment on above: Performed By: #### 2 33454 #### [facility],[address] [place] [address] MCHC 34 X10 3 Normal 32 - 36 [facility] Comment on above: Performed By: #### 2 27284 #### [facility],[address] [place] [address] MCV (RBC) [Entitic vol] 88 fL Normal 80 - 99 [facility] Comment on above: Performed By: #### 2 79396 #### [facility],[address] [place] [address] [place] # 0.76 x10EE3/UL Normal 0.20 - 1.00 [facility] Comment on above: Performed By: #### 2 85504 #### [facility],[address] [place], [place] [id number] MONOS % 5.6 % Normal 0.0 - 10.0 [facility] Comment on above: Performed By: #### 2 22831 #### [facility],[address] [place] [address] Morphology Hector (Bld) [Interp] N/A Normal [facility] Comment on above: Performed By: #### 2 89319 #### [facility],[address] [place] [address] Neut # 11.17 x10EE3/UL High 1.50 - 7.10 [facility] Comment on above: Performed By: #### 2 22559 #### [facility],[address] [place] [address] Neutrophils/100 WBC (Bld) 82.6 % High 46.0 - 76. 0 [facility] Comment on above: Performed By: #### 2 31733 #### [facility],[address] [place] [address] 20427 PLATELET 163 x10EE3/UL Normal 150 - 450 [facility] Comment on above: Performed By: #### 2 96029 #### [facility],[address] [place] [address] 82594 Platelet mean volume (Bld) [Entitic vol] 9.1 fL Normal 6.6 - 10.[address] [facility] Comment on above: Result Comment: AUTO MATED DIFFERENTIAL Performed By: #### 2 86059 #### [facility],[address] [place] [address] 13851 RBC 2.86 x 10EE6/UL Low 4.10 - 5.30 [facility] Comment on above: Performed By: #### 2 38389 #### [facility],[address] [place] [address] WBC 13.5 x 10EE3/UL High 4.5 - 10.8 [facility] Comment on above: Performed By: #### 2 60549 #### [facility],[address] [place] [address] 27076 BB TYPE & SCREENon 5 ABO A Normal [facility] Comment on above: Performed By: #### 2 79269 #### [facility],[address] [place] [address] 63558 ANTIBODY SCR Negative Normal [facility] Comment on above: Performed By: #### 2 21545 #### [facility],[address] [place] [address] 82927 BB TYPE & SCREEN Normal [facility] Comment on above: Result Comment: TYPE , Rh, AND SCREEN Performed By: #### 2 35339 #### [facility],[address] [place] [address] 06836 Rh Nom (Bld) Positive Normal [facility] Comment on above: Performed By: #### 2 58318 #### [facility],[address] [place] [address] 23841 CBC (NO DIFF)on 10-31-2024 CBC panel Auto (Bld) Normal [facility] Comment on above: Result Comment: CBC( WITHOUT DIFFERENTIAL) Performed By: #### 2 45825 #### [facility],[address] [place] [address] 66644 Erythrocyte distribution width (RBC) [Ratio] 14.7 % Normal 12.0 - 15.[address] [facility] Comment on above: Performed By: #### 2 68324 #### [facility],[address] [place] [address] 63323 Hematocrit (Bld) [Volume fraction] 29.3 % Low 34.0 - 46.0 [facility] Comment on above: Performed By: #### 2 70322 #### [facility],[address] [place] [address] 98307 Hemoglobin (Bld) [Mass/Vol] 9.7 g/dL Low 12.0 - 16.0 [facility] Comment on above: Result Comment: EDILMA ENT DELIVERED BABY PER JULES/OB Performed By: #### 2 55106 #### [facility],[address] [place] [address] 67824 MCH (RBC) [Entitic mass] 29 pg Normal 27 - 33 [facility] Comment on above: Performed By: #### 2 06417 #### [facility],[address] [place] [address] 84317 MCHC 33 X10 3 Normal 32 - 36 [facility] Comment on above: Performed By: #### 2 68186 #### [facility],[address] [place] [address] 70270 MCV (RBC) [Entitic vol] 88 fL Normal 80 - 99 [facility] Comment on above: Performed By: #### 2 60462 #### [address] [address] PLATELET 161 x10EE3/UL Normal 150 - 450 [facility] Comment on above: Performed By: #### 2 11165 #### [facility],[address] [place] [address] 38721 Platelet mean volume (Bld) [Entitic vol] 9.1 fL Normal 6.6 - 10.[address] [facility] Comment on above: Performed By: #### 2 23027 #### [facility],[address] [place] [address] 24583 RBC 3.31 x 10EE6/UL Low 4.10 - 5.30 [facility] Comment on above: Performed By: #### 2 30450 #### [facility],[address] [place] [address] 96189 WBC 17.6 x 10EE3/UL High 4.5 - 10.8 [facility] Comment on above: Performed By: #### 2 80644 #### [facility],[address] [place] [address] 11562 CBC + DIFFon 10-30-2024 Baso # 0.04 x10EE3/UL Normal 0.00 - 0.10 [facility] Comment on above: Performed By: #### 2 64742 #### [facility],[address] [place] [address] 89746 Basophils/100 WBC (Bld) 0.3 % Normal 0.0 - 2.0 [facility] Comment on above: Performed By: #### 2 94380 #### [facility],[address] [place] [address] 93580 CBC + DIFF Normal [facility] Comment on above: Result Comment: CBC- COMPLETE BLOOD COUNT Performed By: #### 2 04450 #### [facility],[address] [place] [address] 39568 EO # 0.09 x10EE3/UL Normal 0.00 - 0.50 [facility] Comment on above: Performed By: #### 2 77577 #### [facility],[address] [place] [address] 20134 Eosinophils/100 WBC (Bld) 0.9 % Normal 0.0 - 7.0 [facility] Comment on above: Performed By: #### 2 74018 #### [facility],[address] [place] [address] Erythrocyte distribution width (RBC) [Ratio] 14.6 % Normal 12.0 - 15.[address] [facility] Comment on above: Performed By: #### 2 43905 #### [facility],[address] [place] [address] Hematocrit (Bld) [Volume fraction] 37.0 % Normal 34.0 - 46.0 [facility] Comment on above: Performed By: #### 2 79692 #### [place] [address] Hemoglobin (Bld) [Mass/Vol] 12.6 g/dL Normal 12.0 - 16.0 [facility] Comment on above: Performed By: #### 2 93796 #### [facility],[address] [place], [place] [address] Lymph # 1.46 x10EE3/UL Normal 0.80 - 2.80 [facility] Comment on above: Performed By: #### 2 97225 #### [facility],[address] [place], [place] [address] Lymphocytes/100 WBC (Bld) 13.8 % Low 20.0 - 45. 0 [facility] Comment on above: Performed By: #### 2 47164 #### [address] [address] MANUAL DIFF N/A Normal [facility] Comment on above: Performed By: #### 2 05195 #### [address] [address] MCH (RBC) [Entitic mass] 30 pg Normal 27 - 33 [facility] Comment on above: Performed By: #### 2 09813 #### [facility],[address] [place] [address] 45086 MCHC 34 X10 3 Normal 32 - 36 [facility] Comment on above: Performed By: #### 2 04943 #### [facility],[address] [place] [address] 34477 MCV (RBC) [Entitic vol] 88 fL Normal 80 - 99 [facility] Comment on above: Performed By: #### 2 70622 #### [facility],[address] [place] [address] 86131 [place] # 0.70 x10EE3/UL Normal 0.20 - 1.00 [facility] Comment on above: Performed By: #### 2 77738 #### [facility],[address] [place] [address] 31048 MONOS % 6.7 % Normal 0.0 - 10.0 [facility] Comment on above: Performed By: #### 2 52948 #### [facility],[address] [place] [address] 00583 Morphology Hector (Bld) [Interp] N/A Normal [facility] Comment on above: Performed By: #### 2 60565 #### [facility],[address] [place] [address] 97940 Neut # 8.29 x10EE3/UL High 1.50 - 7.10 [facility] Comment on above: Performed By: #### 2 87920 #### [facility],[address] [place] [address] 56808 Neutrophils/100 WBC (Bld) 78.3 % High 46.0 - 76. 0 [facility] Comment on above: Performed By: #### 2 80563 #### [facility],[address] [place] [address] 57186 PLATELET 161 x10EE3/UL Normal 150 - 450 [facility] Comment on above: Performed By: #### 2 53344 #### [facility],[address] [place] [address] 52821 Platelet mean volume (Bld) [Entitic vol] 10.1 fL Normal 6.6 - 10.[address] [facility] Comment on above: Result Comment: AUTO MATED DIFFERENTIAL Performed By: #### 2 06498 #### [facility],[address] [place] [address] 23530 RBC 4.22 x 10EE6/UL Normal 4.10 - 5.30 [facility] Comment on above: Performed By: #### 2 56597 #### [facility],[address] [place], [place] [address] WBC 10.6 x 10EE3/UL Normal 4.5 - 10.8 [facility] Comment on above: Performed By: #### 2 21018 #### [facility],[address] [place], [place] [address] Progesteroneon 07-12-2019 Progesterone 2.7 ng/mL Normal [facility] Comment on above: Performed By: #### P HOMER #### [facility] [address] [place] [phone] Progesteroneon 07-09-2019 Progesterone 9.2 ng/mL Normal [facility] Comment on above: Performed By: #### P HOMER #### [facility] Routine [facility] [address] [place] [phone] Progesteroneon 07-07-2019 Progesterone 15.3 ng/mL Normal [facility] Comment on above: Performed By: #### P HOMER #### [facility] [address] [place] [phone] Progesteroneon 07-05-2019 Progesterone 10.5 ng/mL Normal [facility] Comment on above: Performed By: #### P HOMER #### [facility] [address] [place] [phone] Encounters Encounter Date Encounter Type Care Provider Facility Start: 03-15-2025 End: 03-15-2025 Patient encounter procedure Mckenzie Cain [employer] -Laboratory Specimen Work Phone: Start: 03-15-2025 End: 03-15-[address] Elena Tomas DO Work Phone: -Laboratory Specimen Start: 03-15-2025 End: 03-15-2025 ambulatory Mckenzie Cain [employer] Facility:[facility] Start: 11-08-2024 End: 11-10-2024 Telephone encounter Elena Tomas DO Work Phone: [facility] Comment on above: Appointment Start: 11-06-2024 End: 11-06-2024 ambulatory YOSSI NICOLE [facility] Start: 10-30-2024 End: 11-01-2024 Evaluation and management of inpatient ELENAHelene RUIZ [facility] Procedures Date Procedure Procedure Detail Performing Clinician Start: 03-15-2025 Dehydroepiandrostero ne sulfate level Dr. Elena Tomas DO Work Phone: Comment on above: Performed at: [facility] [place] [id number] Director: Braden Chapa PhD, Phone: [phone] Start: 03-15-[address] Elena Horton Phone: Comment on above: Follicular phase 0.1 - 0.9 Luteal phase 1.8 - 23.9 Ovulation phase 0.1 - 12.0 First trimester 11.0 - 44.3 Second trimester 25.4 - 83.3 Third trimester 58.7 - 214.0 Postmenopausal 0.0 - 0.1Performed at: [facility] [id number] Director: Braden Chapa PhD, Phone: [phone] Start: 03-15-2025 Vitamin D, 25-hydrox y measurement Dr. Elena Tomas DO Work Phone: Payers Date Payer Category Payer Self-pay 2025 Unknown [id number] 1980 Unknown [id number] 1980 Unknown [id number] [id number] [id number] Unknown [id number] Unknown [id number] 2.16.8 [id number] Unknown [id number] 2.16.8 [id number] Social History Date Type Detail Facility Tobacco smoking status OHIS Tobacco smoking consumption unknown [facility] Start: 1980 Sex assigned at Not on file [facility] Gender identity Not on file [facility] in Start: 03-30-2015 Tobacco smoking status NHIS Never smoked tobacco (finding) [facility] Start: 1980 Sex Assigned At Female W [facility] Telephone encounter Note 11-10-2024 Telephone Encounter - Sylvia Castle - 11/10/2024 1:17 PM EST Note Date & Type Note Facility 11-10-2024 Telephone encount er Note Called and left a message that [facility] is accepting new patients and will take the baby on as a new patient advised to give us a call and we will get the baby scheduled. Sylvia Castle [facility] Note 11-10-2024 Telephone Encounter - Sylvia Castle - 11/10/2024 1:17 PM ESTTelephone Encounter - Elena Tomas DO - 11/10/2024 12:51 PM ESTTelephone Encounter - Emma Oro - 11/08/2024 4:15 PM EST Note Date & Type Note Facility 11-10-2024 Miscellaneous Notes Formattin g of this note might be different from the original. Called and left a message that [facility] is accepting new patients and will take the baby on as a new patient advised to give us a call and we will get the baby scheduled. Sylvia Castle [place], but I do not have room for additional patients at this time. Viviana Sellers NP in office sees many children. Patient calls today. Reason for Call: stating that she is a patient of Dr. Padilla but it has been about 5 years since she had last been seen by her. She says that she just had a baby and would like to schedule with Dr. Tomas. No record of this patient being seen byt Dr. Tomas in [facility], okay to schedule ? Please Advise Thank you [phone] (home) Emma Oro documented in this encounter [facility] Telephone encounter Note 11-10-2024 Telephone Encounter - Elena Tomas DO - 11/10/2024 12:51 PM EST Note Date & Type Note Facility 11-10-2024 Telephone encounter Note Mignon, but I do not have room for additional patients at this time. Viviana Sellers NP in office sees many children. [facility] Work Phone: Telephone encounter Note 11-08-2024 Telephone Encounter - Emma Oro - 11/08/2024 4:15 PM EST Note Date & Type Note Facility 11-08-2024 Telephone encount er Note Patient calls today. Reason for Call: stating that she is a patient of Dr. Padilla but it has been about 5 years since she had last been seen by her. She says that she just had a baby and would like to schedule with Dr. Tomas. No record of this patient being seen byt Dr. Tomas in [facility], okay to schedule ? Please Advise Thank you [phone] (home) Emma Oro [facility] Evaluation note Note Date & Type Note Facility Evaluation note No assessment information availa ble [facility] Work Phone: Reason for referral (narrative) Note Date & Type Note Facility Reason for referral (narrative) No reason for referral information available [facility] Work Phone: Summary Purpose Family History No Family History Records FoundNo Family History Records FoundNo Family History Records Found Advance Directives No Advanced Directives Records FoundNo Advanced Directives Records FoundNo Advanced Directives Records Found Additional Source Comments INFORMATION SOURCE (unrecogn ized section and content) DATE CREATED AUTHOR 07/13/2019 [facility] DATE CREATED AUTHOR AUTHOR'S ORGANIZ ATION 11/07/2024 [facility] DATE CREATED AUTHOR AUTHOR'S ORGANIZ ATION 03/26/2025 [facility] Source Comments (unrecognize d section and content) In the event this informatio n is protected by the Federal Confidentiality of Alcohol and Drug Abuse Patient Records regulations: The Federal rules restrict any use of the information to criminally investigate or prosecute any alcohol or drug abuse patient.[facility] Reason for Visit (unrecogniz ed section and content) Reason Comments Appointment Care Teams (unrecognized sec tion and content) Team Status: Active Member Role/Relationship Status Dates Dr. Elena Tomas DO Primary Care Provider Active Team Status: Inactive Member Role/Relationship Status Dates Dr. Elena Tomas DO Primary Care Provider Active Start: March 15, 2025 End: March 15, 2025 Mckenzie Cain [employer], [employer] Attending Provider Active Start: March 15, 2025 End: March 15, 2025 Mckenzie K Michener [employer], [employer] Referring Provider Active Start: March 15, 2025 End: March 15, 2025 Goals (unrecognized section and content) Goals may be documented in a n alternate section FOR RECORDS PERTAINING TO PATIENTS WHO ARE OR HAVE BEEN ENROLLED IN A CHEMICAL DEPENDENCY/SUBSTANCEABUSE PROGRAM, SOME INFORMATION MAY BE OMITTED. This clinical summary was aggregated from multiple sources. Caution should be exercised in using it in the provision of clinical care. This summary normalizes information from multiple sources, and as a consequence, information in this document may materially change the coding, format and clinical context of patient data. In addition, data may be omitted in some cases. CLINICAL DECISIONS SHOULD BE BASED ON THE PRIMARY CLINICAL RECORDS. [facility]. provides no warranty or guarantee of the accuracy or completeness of information in this document.
[2025-05-01 05:07] LABS: Red Blood Cell Count Test/G6PD 4.89 x10E6/uL (3.77-5.28)
== END | disposition home or self-care (01) ==
LOC: LABSPEC 10:53
PROVIDERS: PCP Family Medicine; Referring Provider Nurse Practitioner Family; Visit Provider Nurse Practitioner Family
DX: A44.0 Systemic bartonellosis (principal)
CPT/HCPCS: 82955